=== PATIENT | male | born 1950 | race Caucasian/White ===

== ENCOUNTER → 2020-03-18 10:42 | Outpatient (CLI) | payer MEDICARE, OTHER, SELFPAY ==
--- NOTE | 2020-03-18 11:10 | RAD_ITS ---
STUDY: X-RAY - LUMBAR SPINE REASON FOR EXAM: Male, 69 years old. RIGHT HIP PAIN S/P GETTING TKA TECHNIQUE: 3 view(s) of the lumbar spine were obtained. COMPARISON: None FINDINGS: Normal lumbar lordosis. There is no substantial scoliosis. There is a normal alignment of the vertebrae. There is multilevel endplate spondylosis of the lumbar vertebrae. There is multi-level degenerative disc disease with multi-level disc space narrowing. The soft tissue structures are unremarkable. RAD/Lumbar Spine 2 or 3 Views IMPRESSION: Degenerative changes of the spine, as detailed above. Electronically Signed: Walt Vasquez, at 10:55 EDT , Service support ,
[2020-03-18 12:27] LABS: Amphetamine Urine VISTA NEGATIVE (<1000 ng/mL); Barbiturate Urine VISTA NEGATIVE (< 200 ng/mL); Benzodiazepine Urine VISTA NEGATIVE (< 200 ng/mL); Cocaine Urine VISTA NEGATIVE (< 300 ng/mL); Ecstacy Urine VISTA NEGATIVE (< 500 ng/mL); Methadone Urine VISTA NEGATIVE (< 300 ng/mL); PCP Urine VISTA NEGATIVE (< 25 ng/mL); THC Urine VISTA NEGATIVE (< 50 ng/mL); Vista UDS pH Range 6
== END ==
PROVIDERS: PCP Family Medicine; Referring Provider Anesthesiology Pain Medicine; Visit Provider Anesthesiology Pain Medicine
DX: F11.20 Opioid dependence, uncomplicated (principal); M54.9 Dorsalgia, unspecified
CPT/HCPCS: 72100; 80307

== ENCOUNTER → 2020-12-11 13:14 | Outpatient (CLI) | payer MEDICARE, OTHER, SELFPAY ==
[2020-12-11 13:51] LABS: Amphetamine Urine VISTA NEGATIVE (<1000 ng/mL); Barbiturate Urine VISTA NEGATIVE (< 200 ng/mL); Benzodiazepine Urine VISTA NEGATIVE (< 200 ng/mL); Cocaine Urine VISTA NEGATIVE (< 300 ng/mL); Ecstacy Urine VISTA NEGATIVE (< 500 ng/mL); Methadone Urine VISTA NEGATIVE (< 300 ng/mL); PCP Urine VISTA NEGATIVE (< 25 ng/mL); THC Urine VISTA NEGATIVE (< 50 ng/mL); Vista UDS pH Range 5
== END ==
PROVIDERS: PCP Family Medicine; Referring Provider Anesthesiology Pain Medicine; Visit Provider Anesthesiology Pain Medicine
DX: F11.20 Opioid dependence, uncomplicated (principal)
CPT/HCPCS: 80307

== ENCOUNTER → 2021-07-03 13:43 | Outpatient (CLI) | payer MEDICARE, OTHER, SELFPAY ==
[2021-07-03 14:29] LABS: Amphetamine Urine VISTA NEGATIVE (<1000 ng/mL); Barbiturate Urine VISTA NEGATIVE (< 200 ng/mL); Benzodiazepine Urine VISTA NEGATIVE (< 200 ng/mL); Cocaine Urine VISTA NEGATIVE (< 300 ng/mL); Ecstacy Urine VISTA NEGATIVE (< 500 ng/mL); Methadone Urine VISTA NEGATIVE (< 300 ng/mL); PCP Urine VISTA NEGATIVE (< 25 ng/mL); THC Urine VISTA NEGATIVE (< 50 ng/mL); Vista UDS pH Range 6
== END ==
PROVIDERS: PCP Family Medicine; Referring Provider Anesthesiology Pain Medicine; Visit Provider Anesthesiology Pain Medicine
DX: F11.20 Opioid dependence, uncomplicated (principal)
CPT/HCPCS: 80307

== ENCOUNTER → 2021-12-23 | Outpatient (CLI) | payer MEDICARE, OTHER, SELFPAY ==
[2021-12-23 13:37] LABS: Amphetamine Urine VISTA NEGATIVE (<1000 ng/mL); Barbiturate Urine VISTA NEGATIVE (< 200 ng/mL); Benzodiazepine Urine VISTA NEGATIVE (< 200 ng/mL); Cocaine Urine VISTA NEGATIVE (< 300 ng/mL); Ecstacy Urine VISTA NEGATIVE (< 500 ng/mL); Methadone Urine VISTA NEGATIVE (< 300 ng/mL); PCP Urine VISTA NEGATIVE (< 25 ng/mL); THC Urine VISTA NEGATIVE (< 50 ng/mL); Vista UDS pH Range 6
== END | disposition home or self-care (01) ==
PROVIDERS: Referring Provider Anesthesiology Pain Medicine; Visit Provider Anesthesiology Pain Medicine
DX: F11.20 Opioid dependence, uncomplicated (principal)
CPT/HCPCS: 80307

== ENCOUNTER → 2022-03-25 | Outpatient (CLI) | payer MEDICARE, OTHER, SELFPAY ==
[2022-03-25 17:51] LABS: Amphetamine Urine VISTA NEGATIVE (<1000 ng/mL); Barbiturate Urine VISTA NEGATIVE (< 200 ng/mL); Benzodiazepine Urine VISTA NEGATIVE (< 200 ng/mL); Cocaine Urine VISTA NEGATIVE (< 300 ng/mL); Ecstacy Urine VISTA NEGATIVE (< 500 ng/mL); Methadone Urine VISTA NEGATIVE (< 300 ng/mL); PCP Urine VISTA NEGATIVE (< 25 ng/mL); THC Urine VISTA NEGATIVE (< 50 ng/mL); Vista UDS pH Range 6
== END | disposition home or self-care (01) ==
LOC: LAB 15:59
PROVIDERS: Referring Provider Anesthesiology Pain Medicine; Visit Provider Anesthesiology Pain Medicine
DX: F11.20 Opioid dependence, uncomplicated (principal)
CPT/HCPCS: 80307

== ENCOUNTER 2022-12-18 19:26 | Emergency (ER) | payer MEDICARE, OTHER, SELFPAY ==
[2022-12-18 19:27] VITALS: BP 180/91; PULSE 118; RESP 18; TEMP 37.4; O2SAT 98; BMI 36.1
--- NOTE | 2022-12-18 19:42 | CT_ITS ---
The INDICATION: Flank Pain EXAMINATION: CT Abdomen And Pelvis W/O Contrast Injection TECHNIQUE: Helically acquired images were obtained of the abdomen and pelvis without the use of IV contrast. A radiation dose optimization technique was used for this scan. Oral contrast: None. COMPARISON: None FINDINGS: Evaluation of the solid organs and vascular structures is limited without intravenous contrast. Visualized lung bases: Unremarkable Liver: Unremarkable Gallbladder: Unremarkable Spleen: Unremarkable Pancreas: Unremarkable Adrenal Glands: Unremarkable Kidneys: Mild left hydroureteronephrosis with no obstructing stone or mass seen. Vasculature: Mild scattered aortoiliac atherosclerotic calcifications. GI Tract: Scattered diverticula throughout the colon without evidence of inflammation. Lymphadenopathy: None Peritoneum: No ascites. Bladder: Collapsed. Reproductive organs: Unremarkable Bones/Soft tissues: There are diffuse degenerative changes of the spine. CT/Abdomen/Pelvis without Cont IMPRESSION: Mild left hydroureteronephrosis with no obstructing stone or mass seen. This could be due to a recently passed stone. Electronically Signed: Moi Solorzano MD at 21:46 EDT ,
--- NOTE | 2022-12-18 19:53 | EX.ED.DYSGE1 ---
HPI <CHARLIE Pierre - Last Filed: 12/18/22 21:06> History of Present Illness Chief Complaint: Complaint Narrative Narrative: Patient is a 72-year-old male with history of hypertension, BPH, anxiety presents to the emergency department with 1 day of left-sided flank pain, dysuria, blood in urine. Patient states that he feels achy, as well as cold chills. He states the pain is moderate, he feels like a cramping sensation. He said he feels pain all the way down to his penis. He denies any vomiting however does have nausea. He denies any history of kidney stones. He denies any trauma. PFSH <CHARLIE Pierre - Last Filed: 12/18/22 21:06> [facility] Home Medications buspirone 5 mg tablet 5 mg PO BID 12/18/22 [History Last Taken Unknown] cephalexin 500 mg capsule 500 mg PO Q6 5 days #20 CAPSULES 12/18/22 [Rx Last Taken Unknown] cholecalciferol (vitamin D3) 50 mcg (2,000 unit) tablet 2,000 unit PO DAILY 12/18/22 [History Last Taken Unknown] hydrochlorothiazide 25 mg tablet 12.5 mg PO DAILY 12/18/22 [History Last Taken Unknown] hydroxyzine pamoate 25 mg capsule 25 mg PO BID PRN Anxiety 12/18/22 [History Last Taken Unknown] metoprolol succinate 50 mg tablet,extended release 24 hr 50 mg PO DAILY 12/18/22 [History Last Taken Unknown] tamsulosin 0.4 mg capsule 0.4 mg PO DAILY 12/18/22 [History Last Taken Unknown] Allergy/AdvReac Type Severity Reaction Status Date / Time No Known Allergies Allergy Verified 12/18/22 19:26 Social History Smoking Status: Never smoker ROS <CHARLIE Pierre - Last Filed: 12/18/22 21:06> ROS ED ROS Narrative Constitutional: Negative for fever, weight loss, weakness. Positive for chills Eyes: Negative for vision loss, vision change, double vision ENT: Negative for any sore throat, ear pain, congestion Cardiovascular: Negative for any chest pain, tightness, palpitations Respiratory: Negative for any cough, sputum production, hemoptysis, dyspnea, dyspnea on exertion, orthopnea Gastrointestinal: Negative for any abdominal pain, vomiting, diarrhea, constipation, blood in stool, blood in vomit. Positive for nausea : Negative for any retention. Positive for dysuria, blood in urine, frequency. Positive left flank pain Muscle skeletal: Negative for any muscle joint pain, stiffness, myalgias, arthralgias, neck pain, back pain Neurological: Negative for any headache, syncope, numbness or tingling, dizziness Skin: Negative for any rashes, lumps, itching, abrasions, lacerations Psychiatric: Negative for any depression, anxiety, stress, suicidal ideation, homicidal ideation Hematologic: Negative for any easy bruising, excessive bruising, easy bleeding Allergies: Negative for any eczema, hives, rash EXAM <CHARLIE Pierre - Last Filed: 12/18/22 21:06> Physical Exam Narrative Exam Narrative: Vital signs reviewed. I did repeat the patient's temperature it was 98.6. Patient appears to be in no obvious distress. HEET: Head normocephalic atraumatic, TMs clear bilaterally. Posterior pharynx is clear, moist mucous membranes. Nares clear bilaterally. Neck: Supple with no lymphadenopathy or tenderness. No signs of meningismus, negative jolt sign. Cardiac: Regular rate and rhythm no murmurs gallops or rubs, equal peripheral pulses bilaterally. Respiratory: Lungs clear to auscultation bilaterally. No chest tenderness. Abdomen: Soft, nontender, nondistended. No abdominal bruit or pulsatile masses. No hepatosplenomegaly Extremities: No peripheral edema, no signs of gross trauma or deformity. Active full range of motion of all extremities. Neuro: Cranial nerves II through XII intact, no focal neurological deficits. Skin: Clean dry and intact with no rash, purpura, petechiae, vesicles or pustules. Backs/flank: Positive for left-sided CVA tenderness no midline spinal tenderness, no deformity. Psych: Normal mood and affect. No SI, HI or acute psychosis. Const Vital Signs: 12/18/22 19:27 12/18/22 21:26 Temperature 99.4 F H Temperature Source Temporal Pulse Rate 118 H Respiratory Rate 18 15 Blood Pressure 180/91 H 113/70 Blood Pressure Mean 120 84 Pulse Ox 98 96 Oxygen Delivery Method Room Air Room Air <Dr. Remy Villalobos MD - Last Filed: 12/18/22 22:17> Physical Exam Const Vital Signs: 12/18/22 19:27 12/18/22 21:26 Temperature 99.4 F H Temperature Source Temporal Pulse Rate 118 H Respiratory Rate 18 15 Blood Pressure 180/91 H 113/70 Blood Pressure Mean 120 84 Pulse Ox 98 96 Oxygen Delivery Method Room Air Room Air [facility] <CHARLIE Pierre - Last Filed: 12/18/22 21:06> [facility] Lab Data Labs: Laboratory Results - last 24 hr 12/18/22 12/18/22 12/18/22 19:55 20:00 20:00 WBC 12.7 H RBC 4.82 Hgb 14.7 Hct 43.3 MCV 89.8 MCH 30.5 MCHC 33.9 RDW Std Deviation 45.7 H RDW Coeff of Janeth 13.9 Plt Count 204 MPV 10.2 Immature Gran % (Auto) 0.500 Neut % (Auto) 83.5 H Lymph % (Auto) 7.7 L [place] % (Auto) 7.6 Eos % (Auto) 0.2 Baso % (Auto) 0.5 Absolute Neuts (auto) 10.6 H Absolute Lymphs (auto) 0.98 Nucleated RBC % 0 Sodium 138 Potassium 3.8 Chloride 102 Carbon Dioxide 27.0 Anion Gap 9 BUN 14 Creatinine 1.32 H Estim Creat Clear Calc 50.38 Est GFR (MDRD) Af Amer 69 Est GFR (MDRD) Non-Af 57 L BUN/Creatinine Ratio 10.6 Glucose 103 Calcium 9.3 Urine Color Yellow Urine Clarity Sl. Cloudy Urine pH 5.0 Ur Specific [place] 1.015 Urine Protein 100 H Urine Glucose (UA) Normal Urine Ketones Negative Urine Occult Blood 250 H Urine Nitrite Negative Urine Bilirubin Negative Urine Urobilinogen Normal Ur Leukocyte Esterase 500 H Urine RBC > 100 SEEN Urine WBC >100 SEEN Ur Squamous Epith Cells 0 SEEN Urine Bacteria 1+ Urine Mucus 0 SEEN Radiography Diagnostic Testing: Clinical Impression(s) from Imaging Studies Abdomen/Pelvis CT 12/18/22 19:42 IMPRESSION: Mild left hydroureteronephrosis with no obstructing stone or mass seen. This could be due to a recently passed stone. Electronically Signed: Moi Solorzano MD at 21:46 EDT , Treatment and Re-Evaluation :: All radiologic examinations were read, reviewed by the emergency department attending. From these reads, a plan of care will be put in place. Patient appears nontoxic, patient did have slight tachycardia, low-grade fever on arrival. Patient presents the emergency department for hematuria, frequency of urination. Patient's physical examination was consistent with a cystitis however patient did have some left flank pain, patient did receive a work-up concerning for possible renal calculus, infected renal calculus, hydronephrosis. Patient's laboratory values showed a leukocytosis white blood count 12.7. Patient's chemistries showed a slight elevation his creatinine at 1.32, I did look at the patient's MyChart, he is normally around 1.0. GFR was 57. Patient's urinalysis showed infection with bacteria white blood cells, red blood cells as well as leukocytes. He will be started on IV Rocephin 1 g here. He will be placed on Keflex 500 mg 4 times a day for 5 days. He will follow-up closely with his PCP. Did receive a CT scan here they will be inter by the ER physician. It has not been read by radiology. At this time, the patient has no evidence of any pyelonephritis, sepsis, infected stone, patient is stable for discharge. He he feels comfortable going home. All questions answered. Patient stable for discharge. <Dr. Remy Villalobos MD - Last Filed: 12/18/22 22:17> [facility] History & Record Review Additional record(s) reviewed:: Prior labs Lab Data Attestation: I reviewed the patient's lab results. Labs: Laboratory Results - last 24 hr 12/18/22 12/18/22 12/18/22 19:55 20:00 20:00 WBC 12.7 H RBC 4.82 Hgb 14.7 Hct 43.3 MCV 89.8 MCH 30.5 MCHC 33.9 RDW Std Deviation 45.7 H RDW Coeff of Janeth 13.9 Plt Count 204 MPV 10.2 Immature Gran % (Auto) 0.500 Neut % (Auto) 83.5 H Lymph % (Auto) 7.7 L [place] % (Auto) 7.6 Eos % (Auto) 0.2 Baso % (Auto) 0.5 Absolute Neuts (auto) 10.6 H Absolute Lymphs (auto) 0.98 Nucleated RBC % 0 Sodium 138 Potassium 3.8 Chloride 102 Carbon Dioxide 27.0 Anion Gap 9 BUN 14 Creatinine 1.32 H Estim Creat Clear Calc 50.38 Est GFR (MDRD) Af Amer 69 Est GFR (MDRD) Non-Af 57 L BUN/Creatinine Ratio 10.6 Glucose 103 Calcium 9.3 Urine Color Yellow Urine Clarity Sl. Cloudy Urine pH 5.0 Ur Specific [place] 1.015 Urine Protein 100 H Urine Glucose (UA) Normal Urine Ketones Negative Urine Occult Blood 250 H Urine Nitrite Negative Urine Bilirubin Negative Urine Urobilinogen Normal Ur Leukocyte Esterase 500 H Urine RBC > 100 SEEN Urine WBC >100 SEEN Ur Squamous Epith Cells 0 SEEN Urine Bacteria 1+ Urine Mucus 0 SEEN Radiography Diagnostic Testing: Clinical Impression(s) from Imaging Studies Abdomen/Pelvis CT 12/18/22 19:42 IMPRESSION: Mild left hydroureteronephrosis with no obstructing stone or mass seen. This could be due to a recently passed stone. Electronically Signed: Moi Solorzano MD at 21:46 EDT , My interpretation of the CT agrees with that of the radiologist. Treatment and Re-Evaluation Comments:: Seen and evaluated independently and in conjunction with nurse practitioner. Agree with notes above unless documented otherwise. Patient with several hours of urinary symptoms, discomfort in his suprapubic area, discomfort in his back, no fevers, chills, nausea, vomiting. He did have some hematuria but no urinary retention. Has a history of an enlarged prostate that he takes tamsulosin for. On exam he is well-appearing, no significant abdominal tenderness, no CVA tenderness. Plan is labs, urinalysis, CT to rule out obstruction in the ureter, I reviewed those images, does not appear to have a urinary ureteral obstruction or signs of pyelonephritis. Plan will likely be antibiotic to treat urinary infection send culture. Did review the interpretation by the radiologist with the CT scan, possible recently passed stone, there is some mild left hydroureteronephrosis without an obvious cause for an obstruction. We did review old labs from an outpatient that the patient showed us on his cell phone from [facility]; May 2022 his creatinine was 1.0. Today it is 1.3. Unknown when the change occurred, he will need to have this followed up on as an outpatient. Discharge Plan Triage Chief Complaint: Complaint ED Midlevel Provider: Naren Cano ED Provider: Remy Villalobos Dx/Rx/DC Orders Clinical Impression: Acute hemorrhagic cystitis Instructions: ED Hematuria, ED Bladder Infection, Male (Adult) Prescriptions: New cephalexin 500 mg capsule 500 mg PO Q6 5 Days Qty: 20 0RF Rx Instructions: You will take 1 tab 4 times a day while awake. No Action metoprolol succinate 50 mg tablet extended release 24 hr 50 mg PO DAILY cholecalciferol (vitamin D3) 50 mcg (2,000 unit) Tablet 2,000 unit PO DAILY tamsulosin 0.4 mg Capsule 0.4 mg PO DAILY hydroxyzine pamoate 25 mg Capsule 25 mg PO BID PRN (Reason: Anxiety) hydrochlorothiazide 25 mg Tablet 12.5 mg PO DAILY buspirone 5 mg Tablet 5 mg PO BID Primary Care Provider: Elbert Valera Referrals: Care Physician,No Primary [Non-Staff] - Activity Restrictions/Additional Instructions: Please increase your oral intake. He will take your antibiotics as prescribed 4 times a day. Follow-up with your PCP regarding your creatinine of 1.3. Disposition Disposition: Home, Self Care
[2022-12-18 20:01] LABS: Mucous, Urine 0 SEEN /hpf (<or=2+); Squamous Epithelial Cells - UA 0 SEEN /hpf (0-5)
[2022-12-18] MEDS: 0.9% Normal Saline 1,000 ML 1000 ML IV (20:06)
[2022-12-18] MEDS: Ondansetron 4 MG/2 ML Vial IV (20:06)
[2022-12-18 20:07] LABS: Absolute Lymphocyte Count 0.98 X10^3/uL (0.83-4.51); Absolute Neutrophil Count 10.6 X10^3/uL (2.0-7.7); Basophil# 0.06 X10^3/uL; Basophil% 0.5 % (0-1); Eosinophil# 0.03 X10^3/uL; Eosinophils% 0.2 % (0-5); Hematocrit 43.3 % (40-54); Hemoglobin 14.7 g/dL (13.0-16.5); Lymphocyte # 0.98 X10^3/ul (0.83-4.51); Lymphocyte % 7.7 % (19-41); Mean Corp Hgb Conc 33.9 g/dL (32-36); Mean Corpuscular Hgb 30.5 pg (27.0-32.0); Mean Corpuscular Volume 89.8 fL (80-94); Mean Platelet Vol. 10.2 fl (6.2-12.0); Monocyte# 0.96 X10^3/uL; Monocyte% 7.6 % (0-10); NRBC Flagged by Analyzer 0 % (0-5); Neutrophil # 10.61 X10^3/uL (2.7-7.7); Neutrophil % 83.5 % (47-70); Platelet Count 204 K/mm3 (150-450); RBC Distribution Width CV 13.9 % (11.6-14.6); RBC Distribution Width SD 45.7 fl (35.1-43.9); Red Blood Count 4.82 M/mm3 (4.6-6.2); White Blood Count 12.7 K/mm3 (4.4-11.0)
[2022-12-18 20:15] LABS: Color, Urine Yellow (Yellow); Glucose, Dipstick Normal (Normal); Ketone-Dipstick Negative (Negative); Leukocyte Esterase-Dipstick 500 /ul (Negative); Nitrite-Dipstick Negative (Negative); Occult Blood-Urine 250 /ul (Negative); Protein-Dipstick 100 mg/dl (Negative); Specific Gravity, Urine 1.015 (1.002-1.030); Urine Bilirubin Dipstick Negative (Negative); Urine Clarity Sl. Cloudy (Clear); Urine Urobilinogen Normal (Normal)
[2022-12-18 20:21] LABS: White Blood Cells >100 SEEN /hpf (0-5)
[2022-12-18 20:22] LABS: Bacteria 1+ /hpf (None Seen); Red Blood Cells-Urine > 100 SEEN /hpf (0-5)
[2022-12-18 20:33] LABS: Anion Gap 9 (5-15); BUN 14 mg/dL (7-18); BUN/Creat Ratio 10.6 RATIO (10-20); Calcium,Total 9.3 mg/dL (8.5-10.1); Chloride 102 mmol/L (98-107); Creatinine, Serum 1.32 mg/dL (0.70-1.30); EST Glomerular Filtration Rate 57 mL/min (>60); Est Glom Filt Rate - Afr Amer 69 mL/min (>60); Estimated Creatinine Clearance 50.38 ml/min; Glucose 103 mg/dL (74-106); Potassium 3.8 mmol/L (3.5-5.1); Sodium Level 138 mmol/L (136-145)
[2022-12-18] MEDS: traMADol 50 MG Tablet PO (20:36)
[2022-12-18 21:26] VITALS: BP 113/70; RESP 15; O2SAT 96
[2022-12-18] MEDS: Ceftriaxone 1 GM/50 ML BAG IV (21:55)
[2022-12-18 22:15] VITALS: BP 113/70
[2022-12-18] MEDS: Phenazopyridine 95 MG Tablet 190 MG PO (22:15)
== END 2022-12-18 22:18 | disposition home or self-care (01) ==
PROVIDERS: Nurse Practitioner; Emergency Provider Emergency Medicine; PCP Family Medicine; Visit Provider Emergency Medicine
DX: N30.90 Cystitis, unspecified without hematuria (principal); I10 Essential (primary) hypertension; F41.9 Anxiety disorder, unspecified; Z79.899 Other long term (current) drug therapy
CPT/HCPCS: 74176; 80048; 81001; 85025; 87077; 87086; 87088; 87186; 96361; 96365; 96375; 99283; J7030; A4216; J2405

== ENCOUNTER 2023-03-22 14:10 | Emergency (ER) | payer MEDICARE, OTHER, SELFPAY ==
[2023-03-22 14:11] VITALS: BP 147/80; PULSE 91; RESP 18; TEMP 36.6; O2SAT 98; BMI 34.8
--- NOTE | 2023-03-22 14:45 | RAD_ITS ---
STUDY: X-RAY CHEST REASON FOR EXAM: Male, 72 years old. Chest pain TECHNIQUE: Single AP portable view of the chest. COMPARISON: None. FINDINGS: EKG electrodes are seen. Hyperinflation. The lungs are clear. There is no demonstrated pleural abnormality. Normal size heart. Normal mediastinum and eugenia. Normal visualized pulmonary arteries. Normal visualized aortic arch and descending thoracic aorta. There are degenerative changes of the visualized thoracic spine. Normal visualized ribs, clavicles, and shoulders. There is no demonstrated abnormality of the visualized soft tissue structures of the upper abdomen. RAD/Chest 1 View (Portable) IMPRESSION: Hyperinflation. The lungs are clear. Electronically Signed: Walt Vasquez MD at 15:06 EDT ,
--- NOTE | 2023-03-22 14:45 | EKG12_ITS ---
Test Reason : Blood Pressure : / mmHG Vent. Rate : 085 BPM Atrial Rate : 085 BPM P-R Int : 226 ms QRS Dur : 106 ms QT Int : 376 ms P-R-T Axes : 052 000 042 degrees QTc Int : 447 ms Sinus rhythm with 1st degree A-V block Otherwise normal ECG Confirmed by NGUYỄN RAMSEY, MYLA ([id number]), assignment desk editor MILES OLSON ([id number]) on 03/23/2023 9:41:43 AM Referred By: RUFINO Confirmed By:MYLA ADRIAN MD
[2023-03-22 14:58] LABS: Absolute Lymphocyte Count 1.32 X10^3/uL (0.83-4.51); Absolute Neutrophil Count 4.3 X10^3/uL (2.0-7.7); Basophil# 0.03 X10^3/uL; Basophil% 0.5 % (0-1); Eosinophil# 0.05 X10^3/uL; Eosinophils% 0.8 % (0-5); Hematocrit 41.9 % (40-54); Lymphocyte # 1.32 X10^3/ul (0.83-4.51); Lymphocyte % 21.3 % (19-41); Mean Corp Hgb Conc 35.8 g/dL (32-36); Mean Corpuscular Hgb 31.4 pg (27.0-32.0); Mean Corpuscular Volume 87.7 fL (80-94); Mean Platelet Vol. 10.4 fl (6.2-12.0); Monocyte# 0.52 X10^3/uL; Monocyte% 8.4 % (0-10); NRBC Flagged by Analyzer 0 % (0-5); Neutrophil # 4.26 X10^3/uL (2.7-7.7); Neutrophil % 68.5 % (47-70); Platelet Count 200 K/mm3 (150-450); RBC Distribution Width CV 13.3 % (11.6-14.6); RBC Distribution Width SD 42.5 fl (35.1-43.9); Red Blood Count 4.78 M/mm3 (4.6-6.2); White Blood Count 6.2 K/mm3 (4.4-11.0)
--- NOTE | 2023-03-22 15:12 | EX.ED.DYSGE1 ---
HPI History of Present Illness Chief Complaint: Palpitations Narrative Narrative: 72-year-old male presenting for evaluation of palpitations. He states he has cardiac problem that he is unsure what the name is. He states that when he exerts himself too aggressively his node will fire abnormally palpitations. 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 He was seen by Dr. Valera recently who is his primary care physician. He was not tolerating 75 mg of p.o. metoprolol daily because he was getting lightheaded. He is now on 50 mg p.o. daily but states even then his pressures were dropping to about 100 and he was getting lightheaded. He is now taking 25 mg p.o. daily and he states his pressures have been fine until today when he went for a walk and he was pushing himself he notes that his heart rate went up to 160 and his blood pressure was in the 170s. He denies headache, chest pain, shortness of breath. He took the other 25 mg of metoprolol prior to coming to the ER. He states he has a cardiac consult upcoming in April for this palpitation issue. [facility] Medical History Hypertension Home Medications buspirone 5 mg tablet 5 mg PO BID 12/18/22 [History Last Taken Unknown] cephalexin 500 mg capsule 500 mg PO Q6 5 days #20 CAPSULES 12/18/22 [Rx Last Taken Unknown] cholecalciferol (vitamin D3) 50 mcg (2,000 unit) tablet 2,000 unit PO DAILY 12/18/22 [History Last Taken Unknown] hydrochlorothiazide 25 mg tablet 12.5 mg PO DAILY 12/18/22 [History Last Taken Unknown] hydroxyzine pamoate 25 mg capsule 25 mg PO BID PRN Anxiety 12/18/22 [History Last Taken Unknown] metoprolol succinate 50 mg tablet,extended release 24 hr 50 mg PO DAILY 12/18/22 [History Last Taken Unknown] tamsulosin 0.4 mg capsule 0.4 mg PO DAILY 12/18/22 [History Last Taken Unknown] Allergy/AdvReac Type Severity Reaction Status Date / Time No Known Allergies Allergy Verified 03/22/23 14:12 Social History Smoking Status: Never smoker ROS ROS ED Constitutional Constitutional ED: Denies chills, fever(s) or sweats Eyes Eyes: Denies blurry vision or change in vision ENT ENT ED: Denies ear pain or sore throat Cardiovascular Cardiovascular: Reports palpitations and racing heartbeat; Denies chest pain Respiratory/Chest Respiratory/Chest: Denies cough, dyspnea or sputum Gastrointestinal Gastrointestinal: Denies abdominal pain, constipation, diarrhea, nausea or vomiting Genitourinary Genitourinary ED: Denies dysuria, hematuria or urinary frequency Musculoskeletal Musculoskeletal: Denies arthralgias, myalgias or neck pain Integumentary Denies abscess, Abrasions or rash Neurologic Neurologic: Denies headache(s), paresthesias or weakness Psychiatric Psychiatric: Denies anxiety, depression, suicidal ideation or suicidal thoughts Endocrine Endocrinology: Denies polydipsia or polyuria EXAM Physical Exam Const Vital Signs: 03/22/23 14:11 03/22/23 15:28 Temperature 97.8 F Temperature Source Temporal Pulse Rate 91 Pulse Rate [Lying] 69 Pulse Rate [Sitting (for 1 minute prior to obtaining)] 73 Pulse Rate [Standing (for 1 minute prior to obtaining)] 71 Respiratory Rate 18 Blood Pressure 147/80 H Blood Pressure [Lying] 152/80 H Blood Pressure [Sitting (for 1 minute prior to obtaining)] 149/80 H Blood Pressure [Standing (for 1 minute prior to obtaining)] 164/92 H Blood Pressure Mean 102 Blood Pressure Mean [Lying] 104 Blood Pressure Mean [Sitting (for 1 minute prior to obtaining)] 103 Blood Pressure Mean [Standing (for 1 minute prior to obtaining)] 116 Pulse Ox 98 Oxygen Delivery Method Room Air General Appearance ED: Negative for pallor HEENT Reports normocephalic and head/scalp atraumatic Eyes PERRL and EOMs intact bilaterally Chest Wall inspection of chest normal and palpation of chest normal Resp normal respiratory effort and clear to auscultation bilaterally Auscultation: Negative for rales, rhonchi or wheezes Cardio regular rate and regular rhythm Narrative: Deferred Extremity General Extremety ED: Yes tenderness Neuro oriented x3 and CN's II-XII intact bilaterally Sensorium / Orientation: alert Motor Exam: strength 5/5 throughout Psych mental status grossly normal Attitude: No agitated Skin no rashes or lesions noted General Skin Exam: Negative for jaundice or pallor MDM MDM MDM Narrative Medical decision making narrative: Patient presenting with palpitations and elevated blood pressure. States his heart was racing when he was walking but he was pushing himself pretty hard. I was able to look up his medical history in [facility] and it appears he has PVCs as his cardiac problem and apparently he told his primary care this was worsening. He does not have any chest pain or shortness of breath. Differential does include however acute coronary syndrome, pneumonia, electrolyte abnormalities, anemia, dehydration, medication side effect, dysrhythmia, orthostatic hypotension. Will obtain a CBC to assess white blood cell count, hemoglobin, platelets. BMP to assess renal function, electrolytes, glucose. High-sensitivity troponin and EKG to assess for ischemia. Chest x-ray to rule out pneumonia. Orthostatics were negative. CBC unremarkable. BMP shows potassium low at 2.9. This was repleted orally with 40 mill equivalents. Renal function is normal. High-sensitivity opponent is 5. EKG on my interpretation shows a normal sinus rhythm with first-degree AV block at a ventricular rate of 85 bpm without sign of ischemic change. X-ray mitral rotation shows no acute process. The radiologist interpreted this and agrees. Discussed the case with Dr. Olivier who is on-call for Dr. Valera. He recommended discontinuing the hydrochlorothiazide which would help with his low blood pressures and also help with his low potassium. He recommended that he take the full dose of the 50 mg of metoprolol and keep a blood pressure diary. Discussed with patient he is amenable to this. Discharged home in stable condition. Impression 1. PVCs 2. Hypokalemia 3. Palpitations 4. Hypertension Lab Data Attestation: I reviewed the patient's lab results. Labs: Laboratory Results - last 24 hr 03/22/23 14:50 WBC 6.2 RBC 4.78 Hgb 15.0 Hct 41.9 MCV 87.7 MCH 31.4 MCHC 35.8 RDW Std Deviation 42.5 RDW Coeff of Janeth 13.3 Plt Count 200 MPV 10.4 Immature Gran % (Auto) 0.500 Neut % (Auto) 68.5 Lymph % (Auto) 21.3 [place] % (Auto) 8.4 Eos % (Auto) 0.8 Baso % (Auto) 0.5 Absolute Neuts (auto) 4.3 Absolute Lymphs (auto) 1.32 Nucleated RBC % 0 Sodium 137 Potassium 2.9 L Chloride 104 Carbon Dioxide 26.0 Anion Gap 7 BUN 10 Creatinine 1.08 Estim Creat Clear Calc 61.57 Est GFR (MDRD) Af Amer 87 Est GFR (MDRD) Non-Af 72 BUN/Creatinine Ratio 9.3 L Glucose 108 H Calcium 9.0 Troponin I High Sens 5 Radiography Diagnostic Testing: Clinical Impression(s) from Imaging Studies Chest X-Ray 03/22/23 14:45 IMPRESSION: Hyperinflation. The lungs are clear. Electronically Signed: Walt Vasquez MD at 15:06 EDT , Discharge Plan Triage Chief Complaint: Palpitations ED Provider: Pedrito Lorenzo Dx/Rx/DC Orders Instructions: Premature Ventricular Contract Tx, ED Hypokalemia, ED Palpitations Prescriptions: No Action metoprolol succinate 50 mg tablet extended release 24 hr 50 mg PO DAILY cholecalciferol (vitamin D3) 50 mcg (2,000 unit) Tablet 2,000 unit PO DAILY tamsulosin 0.4 mg Capsule 0.4 mg PO DAILY hydroxyzine pamoate 25 mg Capsule 25 mg PO BID PRN (Reason: Anxiety) hydrochlorothiazide 25 mg Tablet 12.5 mg PO DAILY buspirone 5 mg Tablet 5 mg PO BID cephalexin 500 mg capsule 500 mg PO Q6 5 Days Qty: 20 0RF Rx Instructions: You will take 1 tab 4 times a day while awake. Primary Care Provider: Elbert Valera Referrals: Elbert Valera MD [Primary Care Provider] - Disposition Disposition: Home, Self Care
[2023-03-22 15:14] LABS: Anion Gap 7 (5-15); BUN 10 mg/dL (7-18); BUN/Creat Ratio 9.3 RATIO (10-20); Chloride 104 mmol/L (98-107); Creatinine, Serum 1.08 mg/dL (0.70-1.30); EST Glomerular Filtration Rate 72 mL/min (>60); Est Glom Filt Rate - Afr Amer 87 mL/min (>60); Estimated Creatinine Clearance 61.57 ml/min; Glucose 108 mg/dL (74-106); Potassium 2.9 mmol/L (3.5-5.1); Sodium Level 137 mmol/L (136-145); Troponin-I HS (w/2H Reflex) 5 pg/mL (3.0-78.0)
[2023-03-22 15:28] VITALS: BP 149/80; BP 152/80; BP 164/92; PULSE 69; PULSE 71; PULSE 73
[2023-03-22] MEDS: Potassium Chloride Oral Tablet 20 MEQ 40 MEQ PO (15:32)
[2023-03-22 16:53] LABS: Reflex Troponin-HS? (from REC) Y
== END 2023-03-22 16:10 | disposition home or self-care (01) ==
PROVIDERS: Emergency Provider Student in an Organized Health Care Education/Training Program; PCP Family Medicine; Visit Provider Student in an Organized Health Care Education/Training Program
DX: I49.3 Ventricular premature depolarization (principal); E87.6 Hypokalemia; I10 Essential (primary) hypertension; Z79.899 Other long term (current) drug therapy
CPT/HCPCS: 71045; 80048; 84484; 85025; 93005; 99285; A4216

== ENCOUNTER 2024-08-24 15:22 | Emergency (ER) | payer MEDICARE, OTHER, SELFPAY ==
[2024-08-24 15:22] VITALS: BP 187/102; PULSE 122; RESP 16; TEMP 36.2; O2SAT 98; BMI 39.6
--- NOTE | 2024-08-24 15:30 | EDS_ITS ---
HPI History of Present Illness Chief Complaint: Palpitations Informant: patient Onset/Context/Timing Onset: Today and Hours (1-1/2 hours prior to arrival) Context: Sudden Onset Timing: Continuous Quality: Heart racing Location: Chest Worsened by: Nothing Relieved by: Nothing Narrative Narrative: Patient presents with palpitations that began today. Patient states he was eating a [employer] when he felt his heart racing. Patient states it has been constant for the past hour and a half. Patient states he got up to 137 while he was walking into the emergency department. Patient denies any chest pain. Patient denies any shortness of breath. Patient denies any nausea or vomiting. Patient denies any diaphoresis. Patient denies any neck or back pain. Patient denies any recent fevers or chills. Patient is on flecainide, metoprolol, and Cozaar for tachycardia and hypertension. [facility] Medical History Hypertension Home Medications ?Medication ?Instructions ?Recorded ?Last Taken ?Type buspirone 5 mg tablet 5 mg PO BID 12/18/22 Unknown History cholecalciferol (vitamin D3) 50 2,000 unit PO DAILY 12/18/22 Unknown History mcg (2,000 unit) tablet tamsulosin 0.4 mg capsule 0.4 mg PO DAILY 12/18/22 Unknown History flecainide 100 mg tablet 100 mg PO Q12.TCU 08/24/24 Unknown History losartan 25 mg tablet 25 mg PO DAILY 08/24/24 Unknown History metoprolol succinate 25 mg 25 mg PO DAILY 08/24/24 Unknown History tablet,extended release 24 hr Allergy/AdvReac Type Severity Reaction Status Date / Time No Known Allergies Allergy Verified 08/24/24 15:23 Social History Smoking Status: Never smoker ROS ROS ED Constitutional Constitutional ED: Denies chills or fever(s) Eyes Eyes: Denies blurry vision or change in vision ENT ENT ED: Denies rhinorrhea or sore throat Cardiovascular Cardiovascular: Reports palpitations and racing heartbeat; Denies chest pain Respiratory/Chest Respiratory/Chest: Denies cough or dyspnea Gastrointestinal Gastrointestinal: Denies nausea or vomiting Genitourinary Genitourinary ED: Denies dysuria or hematuria Musculoskeletal Musculoskeletal: Denies back pain or neck pain Integumentary Denies abscess or rash Neurologic Neurologic: Denies headache(s) or weakness Allergic/Immunologic Allergic/Immunologic ED: Denies mouth swelling or urticaria EXAM Physical Exam Const Vital Signs: 08/24/24 15:22 08/24/24 15:32 08/24/24 15:33 Temperature 97.1 F L Temperature Source Temporal Pulse Rate 122 H 103 H Respiratory Rate 16 13 Respiratory Effort Normal Non-Labored Blood Pressure 187/102 H 160/69 H Blood Pressure Mean 130 99 Pulse Ox 98 98 Oxygen Delivery Method Room Air Room Air 08/24/24 15:49 08/24/24 17:45 08/24/24 19:12 Temperature Temperature Source Pulse Rate 77 86 Respiratory Rate 19 H 16 Respiratory Effort Blood Pressure Blood Pressure Mean Pulse Ox 98 99 99 Oxygen Delivery Method Room Air Positive well nourished and well developed General Appearance ED: well developed and NAD HEENT Reports moist mucous membranes Neck supple and no JVD Resp normal respiratory effort and clear to auscultation bilaterally Cardio regular rate and regular rhythm GI non-tender and non-distended Palpation: soft Extremity normal to inspection Extremity Narrative: There is trace edema of the ankles bilaterally. General Extremety ED: Negative for tenderness Psych mental status grossly normal MDM MDM MDM Narrative Medical decision making narrative: Differential diagnosis includes cardiac dysrhythmia, cardiac ischemia, electrolyte abnormality, pneumonia, pneumothorax, dehydration, pulmonary embolism, and anxiety. EKG will be obtained to assess for cardiac dysrhythmia and cardiac ischemia. CBC will be obtained to assess for leukocytosis and anemia. Basic metabolic profile will be obtained to assess for electrolyte abnormality and renal function. High-sensitivity troponin will be obtained to assess for cardiac ischemia. D-dimer will be obtained to assess for pulmonary embolism. If the D-dimer is negative, chest x-ray will be obtained to assess for pneumonia and pneumothorax. If the D-dimer is positive, CTA of the chest will be obtained to assess for pulmonary embolism, pneumonia, and pneumothorax. Lab Data Attestation: I reviewed the patient's lab results. Lab results narrative: CBC was reviewed and was within normal limits. Basic metabolic profile was reviewed and was within normal limits. High-sensitivity troponin was reviewed and was normal at 4. D-dimer was reviewed and was normal at 0.27. 2-hour repeat troponin was reviewed and was normal at 6. Labs: Laboratory Results - last 24 hr 08/24/24 08/24/24 15:31 17:44 WBC 8.5 RBC 4.68 Hgb 14.5 Hct 42.8 MCV 91.5 MCH 31.0 MCHC 33.9 RDW Std Deviation 45.1 H RDW Coeff of Janeth 13.4 Plt Count 235 MPV 10.5 Immature Gran % (Auto) 0.500 Neut % (Auto) 55.6 Lymph % (Auto) 30.9 Carbon % (Auto) 10.7 H Eos % (Auto) 1.4 Baso % (Auto) 0.9 Absolute Neuts (auto) 4.7 Absolute Lymphs (auto) 2.64 Nucleated RBC % 0 D-Dimer Quant (PE/DVT) 0.27 Sodium 139 Potassium 3.7 Chloride 106 Carbon Dioxide 25.0 Anion Gap 7 BUN 15 Creatinine 1.22 Estim Creat Clear Calc 68.40 Est GFR (MDRD) Af Amer 75 Est GFR (MDRD) Non-Af 62 BUN/Creatinine Ratio 12.3 Glucose 126 H Calcium 9.2 Troponin I High Sens 4 6 Radiography Chest X-Ray - ED: 2 View, Read by ED Physician, Read by Radiologist and No Acute Disease Diagnostic Testing: Clinical Impression(s) from Imaging Studies Chest X-Ray 08/24/24 16:30 IMPRESSION: No acute disease. Electronically Signed: Richard Turner MD at 16:45 EST , [place] and lateral chest x-ray was obtained. There are 2 views. On my independent interpretation, lung hodges are clear. There is normal cardiac silhouette. Bony thorax is normal. There is no acute process noted. Radiologist also interpreted the x-ray and agrees. EKG Initial EKG: Attestation: I personally reviewed and interpreted this EKG as follows: Interpretation: Sinus Rhythm (90) and No Acute Injury Pattern Comments: EKG was obtained. On my independent interpretation, it shows a normal sinus rhythm with a rate of 90. ID interval was borderline at 202 ms. QRS interval is normal at 100 ms. QTc interval is normal at 418 ms. [place] was normal. There are no acute ST or T wave changes noted. Prior EKG tracings: available for review Prior: Unchanged (03/22/2023) Treatment and Re-Evaluation :: Patient was given IV fluids. Discharge Plan Triage Chief Complaint: Palpitations ED Provider: Damien Diaz Dx/Rx/DC Orders Clinical Impression: Heart palpitations, Tachycardia Instructions: ED Palpitations Prescriptions: No Action cholecalciferol (vitamin D3) 50 mcg (2,000 unit) Tablet 2,000 unit PO DAILY tamsulosin 0.4 mg Capsule 0.4 mg PO DAILY buspirone 5 mg Tablet 5 mg PO BID losartan 25 mg tablet 25 mg PO DAILY flecainide 100 mg tablet 100 mg PO Q12.TCU metoprolol succinate 25 mg tablet extended release 24 hr 25 mg PO DAILY Primary Care Provider: Elbert Valera Referrals: Elbert Valera MD [Primary Care Provider] - 5-7 Days Print Language: Sen[place]alese Disposition Disposition: Home, Self Care
[2024-08-24 15:32] VITALS: BP 160/69; PULSE 103; RESP 13; O2SAT 98
--- NOTE | 2024-08-24 15:45 | EKG12_ITS ---
Test Reason : CP Blood Pressure : */* mmHG Vent. Rate : 90 BPM Atrial Rate : 90 BPM P-R Int : 202 ms QRS Dur : 100 ms QT Int : 342 ms P-R-T Axes : 54 7 47 degrees QTcB Int : 418 ms Normal sinus rhythm Normal ECG Confirmed by Nicanor Mackenzie ([id number]), food expeditor MILES OLSON ([id number]) on 08/25/2024 9:38:12 AM Referred By: Confirmed By: Nicanor Mackenzie
[2024-08-24 15:49] VITALS: O2SAT 98
[2024-08-24] MEDS: Aspirin 81 MG TAB.CHEW 324 MG PO (15:55)
[2024-08-24] MEDS: 0.9% Normal Saline (1000mL) 1,000 ML 999 ML IV (15:55)
[2024-08-24 16:03] LABS: Absolute Lymphocyte Count 2.64 X10^3/uL (0.83-4.51); Absolute Neutrophil Count 4.7 X10^3/uL (2.0-7.7); Basophil# 0.08 X10^3/uL; Basophil% 0.9 % (0-1); Eosinophil# 0.12 X10^3/uL; Eosinophils% 1.4 % (0-5); Hematocrit 42.8 % (40-54); Hemoglobin 14.5 g/dL (13.0-16.5); Lymphocyte # 2.64 X10^3/ul (0.83-4.51); Lymphocyte % 30.9 % (19-41); Mean Corp Hgb Conc 33.9 g/dL (32-36); Mean Corpuscular Volume 91.5 fL (80-94); Mean Platelet Vol. 10.5 fl (6.2-12.0); Monocyte# 0.91 X10^3/uL; Monocyte% 10.7 % (0-10); NRBC Flagged by Analyzer 0 % (0-5); Neutrophil # 4.74 X10^3/uL (2.7-7.7); Neutrophil % 55.6 % (47-70); Platelet Count 235 K/mm3 (150-450); RBC Distribution Width CV 13.4 % (11.6-14.6); RBC Distribution Width SD 45.1 fl (35.1-43.9); Red Blood Count 4.68 M/mm3 (4.6-6.2); White Blood Count 8.5 K/mm3 (4.4-11.0)
[2024-08-24 16:10] LABS: Anion Gap 7 (5-15); BUN 15 mg/dL (7-18); BUN/Creat Ratio 12.3 RATIO (10-20); Calcium,Total 9.2 mg/dL (8.5-10.1); Chloride 106 mmol/L (98-107); Creatinine, Serum 1.22 mg/dL (0.70-1.30); EST Glomerular Filtration Rate 62 mL/min (>60); Est Glom Filt Rate - Afr Amer 75 mL/min (>60); Glucose 126 mg/dL (74-106); Potassium 3.7 mmol/L (3.5-5.1); Sodium Level 139 mmol/L (136-145); Troponin-I HS (w/2H Reflex) 4 pg/mL (3.0-78.0)
[2024-08-24 16:26] LABS: D-Dimer Quantitative (DVT/PE) 0.27 FEU/ug/m (0.27-0.49)
--- NOTE | 2024-08-24 16:30 | RAD_ITS ---
EXAM: XR CHEST, 2 VIEWS CLINICAL INDICATION: Palpitations TECHNIQUE: Frontal and lateral views of the chest. COMPARISON: No relevant prior studies available. FINDINGS: LUNGS AND PLEURAL SPACES: Unremarkable. No consolidation or edema. No pneumothorax. No effusion. HEART: Unremarkable. Cardiac silhouette not enlarged. MEDIASTINUM: Central airways and mediastinal contour are unremarkable. BONES/JOINTS: Degenerative changes of the spine. No acute fracture. SOFT TISSUES: Unremarkable. RAD/Chest PA and Lateral IMPRESSION: No acute disease. Electronically Signed: Richard Turner MD at 16:45 EST ,
[2024-08-24 17:45] VITALS: PULSE 77; RESP 19; O2SAT 99
[2024-08-24 17:49] LABS: Reflex Troponin-HS? (from REC) Y
[2024-08-24 19:12] VITALS: PULSE 86; RESP 16; O2SAT 99
--- NOTE | 2024-08-24 19:35 | ED.RN ---
LAB CALLED FOR PROLONGED 2ND TROPONIN READ TIME. RESPONSE IT WILL BE 10 MORE MINUTES
[2024-08-24 19:48] LABS: Troponin-I HS 6 pg/mL (3.0-78.0)
[2024-08-24 19:52] VITALS: BP 138/86; PULSE 80; RESP 18; TEMP 36.9; O2SAT 98
== END 2024-08-24 19:56 | disposition home or self-care (01) ==
PROVIDERS: Emergency Provider Emergency Medicine; PCP Family Medicine; Visit Provider Emergency Medicine
DX: R00.2 Palpitations (principal); R00.0 Tachycardia, unspecified; I10 Essential (primary) hypertension; Z79.899 Other long term (current) drug therapy
CPT/HCPCS: 71046; 80048; 84484; 85025; 85379; 93005; 96360; 96361; 99285; A4216